=== PATIENT | female | born 2000 | race Caucasian/White ===

== ENCOUNTER 2021-12-29 13:50 | Emergency (ER) | payer OTHER ==
[~2021-12-29] VITALS: Ht 157.5 cm; Wt 57.3 kg
[2021-12-29] MEDS ORDERED: ONDANSETRON 4MG/2ML VIAL IV ONE (14:20)
[2021-12-29] MEDS ORDERED: NS 1,000 ML IV ONE (14:20)
[2021-12-29] MEDS ORDERED: KETOROLAC 30 MG/ML 1ML VIAL IV ONE (14:20)
[2021-12-29 14:54] LABS: HEMATOCRIT 36.7 % (36.0-47.0); HEMOGLOBIN 11.8 g/dl (12.0-15.5); MEAN CORPUSCULAR HEMOGLOBIN 28.9 pg (27.0-33.0); MEAN CORPUSCULAR HGB CONC 32.2 g/dl (32.0-36.5); MEAN CORPUSCULAR VOLUME 89.7 fl (80.0-96.0); PLATELET COUNT, AUTOMATED 214 10^3/uL (150-450); RED BLOOD COUNT 4.09 10^6/uL (4.00-5.40); WHITE BLOOD COUNT 15.8 10^3/uL (4.0-10.0)
[2021-12-29 15:15] LABS: LYMPHOCYTES 14 % (16-44); MONOCYTES 13 % (0-5); NEUTROPHILS 71 % (28-66)
[2021-12-29 15:16] LABS: PLATELET ESTIMATE NORMAL (NORMAL)
[2021-12-29 15:21] LABS: ALBUMIN 3.6 GM/DL (3.2-5.2); ALT/SGPT 22 U/L (12-78); BILIRUBIN,DIRECT 0.2 MG/DL (0.0-0.2); BILIRUBIN,TOTAL 0.7 MG/DL (0.2-1.0); BLOOD UREA NITROGEN 10 MG/DL (7-18); CALCIUM LEVEL 9.1 MG/DL (8.5-10.1); CARBON DIOXIDE LEVEL 24 MEQ/L (21-32); CHLORIDE LEVEL 102 MEQ/L (98-107); CREATININE FOR GFR 0.83 MG/DL (0.55-1.30); GLOMERULAR FILTRATION RATE > 60.0 (>60); GLUCOSE, FASTING 89 MG/DL (70-100); LIPASE 78 U/L (73-393); POTASSIUM SERUM 3.6 MEQ/L (3.5-5.1); SODIUM LEVEL 135 MEQ/L (136-145); TOTAL PROTEIN 7.2 GM/DL (6.4-8.2)
[2021-12-29] MEDS ORDERED: ISOVUE-370 76% 100ML VIAL As Ordered ONE (16:56)
[2021-12-29 18:00] VITALS: BP 116/57
[2021-12-29] MEDS ORDERED: CEFD300C41 PO ×2 (18:09→19:27)
[2021-12-29] MEDS ORDERED: cefTRIAXone SOD 1 GM in D5W MINI-BAG PLUS 50 ML IV ONE (18:10)
== END 2021-12-29 19:35 | disposition home or self-care (01) ==
LOC: M ED 13:50
DX: N39.0 Urinary tract infection, site not specified (principal); N10 Acute pyelonephritis; Z88.6 Allergy status to analgesic agent
CPT/HCPCS: 74177; 76705; 80048; 80076; 81001; 83690; 84702; 85025; 87088; 87186; 96361; 96365; 96375; 99284; J0696; J1885; J2405; Q9967